=== PATIENT | male | born 1985 | race Caucasian/White ===

== ENCOUNTER 2018-11-15 16:38 | Emergency (ER) | payer OTHER ==
[~2018-11-15] VITALS: Ht 177.8 cm; Wt 84.1 kg
[2018-11-15] MEDS ORDERED: IBUPROFEN 800 MG TABLET PO ONE (18:15)
[2018-11-15 19:50] VITALS: BP 128/76
== END 2018-11-15 20:02 | disposition home or self-care (01) ==
LOC: EMS 16:40
DX: S92.524A Nondisplaced fracture of middle phalanx of right lesser toe(s), initial encounter for closed fracture (principal); F12.90 Cannabis use, unspecified, uncomplicated; F17.210 Nicotine dependence, cigarettes, uncomplicated; W22.8XXA Striking against or struck by other objects, initial encounter; Y93.89 Activity, other specified; Y92.89 Other specified places as the place of occurrence of the external cause; Y99.8 Other external cause status